=== PATIENT | female | born 1935 | race Caucasian/White ===

== ENCOUNTER 2017-03-09 15:59 | Emergency (ER) | payer MEDICARE, OTHER ==
[2017-03-09 17:52] VITALS: BP 178/91
--- NOTE | 2017-03-09 18:02 | ED Physician Documentation ---
PD HPI Fall - Stated complaint Stated Complaint: LIP LAC - Chief complaint Chief Complaint: Heent - History obtained from History obtained from: Patient - History of Present Illness Mechanism of injury: Tripped Fall distance: Sitting position Where injury occurred: Home Injury(ies) location: Face Associated symptoms: No: LOC, Neck pain, Nausea / vomiting - Additional information Additional information: The patient is a 81-year-old female who tripped over a stool at home and fell, impacting her face on the wooden floor. She denies loss of consciousness, headache, or vomiting. She presents now because of laceration to her upper lip. She does not take blood thinners. Her tetanus vaccination is up-to-date. Review of Systems Constitutional: denies: Fever Eyes: denies: Decreased vision Ears: denies: Tinnitus/ringing Nose: denies: Congestion Throat: denies: Sore throat Cardiac: denies: Chest pain / pressure Respiratory: denies: Dyspnea, Cough GI: denies: Abdominal Pain, Vomiting : denies: Dysuria, Incontinent Skin: reports: Laceration (s). denies: Rash Musculoskeletal: denies: Neck pain, Back pain, Extremity pain Neurologic: denies: Focal weakness, Numbness, Altered mental status, Headache, LOC PD PAST MEDICAL HISTORY - Past Medical History Cardiovascular: Hypertension Respiratory: None Neuro: None Endocrine/Autoimmune: None - Present Medications Home Medications: Ambulatory Orders Medication Instructions Recorded Confirmed Lisinopril 30 mg PO DAILY 03/09/17 03/09/17 - Allergies Allergies/Adverse Reactions: Allergies Allergy/AdvReac Type Severity Reaction Status Date / Time No Known Drug Allergies Allergy Verified 03/09/17 16:13 - Social History Does the pt smoke?: No Smoking Status: Never smoker - Immunizations Immunizations are current?: Yes PD ED PE NORMAL - Vitals Vital signs reviewed: (Initially hypertensive.) - General General: Alert and oriented X 3, Well developed/nourished - HEENT HEENT: PERRL, EOMI, Ears normal, Pharynx benign, Other (There is a 1 cm laceration of the upper lip, involving the vermilion border. The right upper incisor is mildly tender to palpation, but does not feel loose. There is a 1.5 cm superficial laceration on the right cheek. There is no mandibular tenderness.) - Neck Neck: No bony TTP, No adenopathy - Cardiac Cardiac: RRR, No murmur - Respiratory Respiratory: No respiratory distress, Clear bilaterally, Other (No chest wall tenderness to palpation.) - Abdomen Abdomen: Soft, Non tender - Back Back: No spinal TTP - Derm Derm: No rash - Extremities Extremities: No tenderness to palpate, No edema, No calf tenderness / cord - Neuro Neuro: Alert and oriented X 3, No motor deficit, No sensory deficit, Normal speech Results - Vitals Vitals: Oxygen O2 Source Room air Procedures - Laceration (location) upper lip Length in cm: 1 Wound type: Irregular Neurovascular status: Sensory intact, Vascular intact Anesthesia: Lidocaine 1% with epi Wound Preparation: Hibiclens, Debrided extensively, Wound explored, To the base Skin layer closure: Nylon, Interrupted, Size #-0 - enter number (6), Sutures - enter # (3) Other: Patient tolerated well, No complications, Neurovascular intact, Tetanus UTD Complexity: Simple right cheek Length in cm: 1.5 Wound type: Linear Neurovascular status: Sensory intact, Motor intact, Vascular intact Wound Preparation: Hibiclens, Irrigated copiously NS Skin layer closure: Dermabond Other: Patient tolerated well, No complications, Tetanus UTD Complexity: Simple PD MEDICAL DECISION MAKING - ED course Complexity details: considered differential, d/w patient ED course: The patient's presentation is significant for trip and fall, with lacerations to the right cheek and the right upper lip. The lacerations were repaired after local anesthetic with 1% lidocaine with epinephrine. The wounds were thoroughly cleaned. The lip laceration was repaired with 6-0 nylon simple sutures. The cheek laceration was repaired with Dermabond. Based on physical exam imaging studies are not clinically indicated. I discussed with the patient the expected course of healing, appropriate wound care in timing for suture removal, as well as potentially worrisome signs or symptoms that should prompt reevaluation in the emergency department. Departure - Departure Disposition: 01 Home, Self Care Clinical Impression: Lip laceration Qualifiers: Encounter type: initial encounter Qualified Code(s): S01.511A - Laceration without foreign body of lip, initial encounter Facial laceration Qualifiers: Encounter type: initial encounter Qualified Code(s): S01.81XA - Laceration without foreign body of other part of head, initial encounter Condition: Stable Instructions: ED Laceration Mouth Comments: Keep the wound clean. You can use Tylenol or ibuprofen if needed for discomfort. Followup for suture removal in about 7 days. Return to the emergency department if you develop increasing pain or swelling, any sign of infection, or otherwise worsening symptoms. Discharge Date/Time: 03/09/17 18:40
== END 2017-03-09 18:40 | disposition home or self-care (01) ==
LOC: ED 15:59
DX: S01.511A Laceration without foreign body of lip, initial encounter (principal); S01.411A Laceration without foreign body of right cheek and temporomandibular area, initial encounter; W01.190A Fall on same level from slipping, tripping and stumbling with subsequent striking against furniture, initial encounter; Y92.018 Other place in single-family (private) house as the place of occurrence of the external cause; I10 Essential (primary) hypertension
CPT/HCPCS: 12011; 99282